=== PATIENT | male | born 1980 | race Caucasian/White ===

== ENCOUNTER 2017-03-03 22:10 | Emergency (ER) | payer SELFPAY ==
[2017-03-03 22:32] VITALS: BMI 23.0
--- NOTE | 2017-03-04 00:04 | DR.GENAD ---
HPI - Complaint/Symptoms Chief Complaint Doctors Comments: Patient had surgery of the left arm five days ago. He admits to pain of the extremity that had surgery s/p throwing a ball. He denies extravasation of fluid of the arm. Chief Complaint:: "I HAD SURGERY ON MY ARM ON FRIDAY THAT I CUT WITH A BLADE SAW. TODAY I FORGOT MY ARM WAS CUT AND I THREW AN EXTENSION CORD AND MY ARM HAS BEEN HURTING AND SWELLING SINCE." - Timing Onset of Chief Complaint: 03/03/17 PMH - PMH Past Medical History: No Past Surgical History: Yes Past Surgical History Comment: LEFT ARM - Family History History of Family Medical Conditions: No - Social History Type of Tobacco Use: Cigarettes Alcohol Use: None Do you use any recreational Drugs:: No Lives With: Spouse Lives Where: Home - infectious screening Have you traveled outside the country in the last 6 months?: No Isolation: Standard ROS - Review of Systems Eyes: No Symptoms Reported, Eye Pain ENTM: No Symptoms Reported Respiratoy: No Symptoms Reported Cardiovascular: No Symptoms Reported Gastrointestinal/Abdominal: No Symptoms Reported Genitourinary: No Symptoms Reported Neurological: No Symptoms Reported Musculoskeletal: Arm (left arm pain) Integumentary: No Symptoms Reported Hematologic/Lymphatic: No Symptoms Reported Endocrine: No Symptoms Reported Psychiatric: No Symptoms Reported All Other Systems: Reviewed and Negative PE - Vital Signs Vitals: Temperature 97.1 F Pulse Rate 100 Respiratory Rate 18 Blood Pressure 149/99 O2 Sat by Pulse Oximetry 97 - General Limitations: No Limitations General Appearance: Alert - Head Head Exam: Normal Inspection, Atraumatic - Eyes Eye exam: Normal Appearance, PERRL, EOMI - ENT ENT Exam: Normal Exam External Ear Exam: Normal External Inspection TM/Canal Exam: Bilateral Normal Nose Exam: Normal Nose Exam Mouth Exam: Normal Inspection Throat Exam: Normal Inspection - Neck Neck Exam: Normal Inspection, Full ROM - Chest Chest Inspection: Normal Inspection - Respiratory Respiratory Exam: Normal Lung Sounds Bilat Respiratory Exam: Bilateral Clear to Auscultation - Cardiovascular Cardiovascular Exam: Regular Rate, Normal Rhythm - Abdominal Exam Abdominal Exam: Normal Inspection, Normal Bowel Sounds Abdominal Tenderness: negative: RUQ, RLQ, LUQ, LLQ, Epigastrium, Suprapubic, Diffuse, Mild, Moderate, Severe, Other - Extremities Extremities Exam: Tenderness (left arm, minimal erythema superiorlly to closure) - Back Back Exam: Normal Inspection - Neurologic Neurological Exam: Alert, Oriented X3, CN II-XII Intact - Psychiatric Psychiatric Exam: Depressed - Skin Skin Exam: Warm, Dry, Intact Course - Reevaluation 1st: Unchanged ROR - XRAY XRAY Interpreted by: Radiologist (CT Left Arm: Moderate soft tissue swelling and edema noted throughout the left arm with small amount of gas within the anterior left arm likely represent sequela of recent trauma and surgery. No definite abscess formation identified. There is no extravasation or occlusion identified within the left upper extremity arterial or venous circulation. No acute osseous abnormality) - Diagnosis Discharge Problem: Soft tissue swelling of non-joint region - Discharge Plan Condition: Stable - Follow ups/Referrals Follow ups/Referrals: [facility],None [Primary Care Provider] - 3 days - Instructions
--- NOTE | 2017-03-04 03:24 | CT ---
CT left arm with contrast Indication: Arm pain and swelling after recent surgery for penetrating trauma Technique: 5 mm axial images of left arm were performed after administration of IV contrast with tea nal and sagittal reformatted images provided. Findings: Skin osbaldo are noted within the medial aspect of the mid/distal left arm. There is small amount gas within the soft tissues of the left anterior arm. There is moderate edema throughout the l eft arm with and non localizing fluid tracking within the medial aspect of the left arm into the axil la. There is no evidence of active venous or arterial extravasation to suggest acute injury within th e left arm. No acute osseous abnormality. Shoulder joint alignment is maintained. There is mild degen erative change of the left AC joint. Impression: Moderate soft tissue swelling and edema noted throughout the left arm with small amount o f gas within the anterior left arm likely represent sequela of recent trauma and surgery. No definite abscess formation identified. There is no extravasation or occlusion identified within the left uppe r extremity arterial or venous circulation. No acute osseous abnormality. Reported By:
[2017-03-04 05:27] VITALS: BP 130/76
== END 2017-03-04 05:27 | disposition home or self-care (01) ==
LOC: ER 22:10
DX: M79.89 Other specified soft tissue disorders (principal)
CPT/HCPCS: 73201; 96365; 99282; 99283; A4222